=== PATIENT | female | born 1975 | race Caucasian/White ===

== ENCOUNTER 2022-10-14 05:46 | Day surgery (SDC) | payer OTHER ==
[2022-10-07 15:25] VITALS: BMI 24.2
[2022-10-14] MEDS ORDERED: BUPIVACAINE HCL/PF 0.5% (5MG/ML) 10 ML VIAL ONE (09:33)
[2022-10-14] MEDS ORDERED: PROPOFOL 20 ML ONE (12:18)
[2022-10-14] MEDS ORDERED: ROCURONIUM BROMIDE 50 MG/5 ML SYRINGE ONE (12:18)
[2022-10-14] MEDS ORDERED: MIDAZOLAM HCL 2 MG/2 ML SINGLE DOSE VIAL ONE (12:19)
[2022-10-14] MEDS ORDERED: ceFAZolin SODIUM 1 GM VIAL IVPB ONE (12:40)
[2022-10-14] MEDS ORDERED: BUPIVACAINE HCL/PF 0.5% (5 MG/ML) 30 ML VIAL IJ ONE (13:00)
[2022-10-14] MEDS ORDERED: NEOSTIGMINE METHYLSULFATE 0.5 MG/1 ML - 10 ML MDV ONE (13:38)
[2022-10-14] MEDS ORDERED: GLYCOPYRROLATE 0.2 MG/1 ML VIAL ONE ×2 (13:38)
[2022-10-14] MEDS ORDERED: ONDANSETRON 4 MG/2 ML VIAL IVPUSH PRN (13:55)
[2022-10-14] MEDS ORDERED: oxyCODONE HCL 5 MG TABLET PO PRN (13:55)
[2022-10-14] MEDS ORDERED: oxyCODONE HCL 5 MG TABLET PO ONE (16:04)
[2022-10-14 16:06] VITALS: RESP 16
[2022-10-14] MEDS ORDERED: oxyCODONE HCL 5 MG TABLET ONE (16:09)
[2022-10-14 18:56] VITALS: BP 121/73; PULSE 97; TEMP 97
== END 2022-10-14 18:30 | disposition home or self-care (01) ==
LOC: JASU-SURG 05:46
PROVIDERS: ATTEND Surgery
PROC: 0FT44ZZ Resection of Gallbladder, Percutaneous Endoscopic Approach (ICD-10-PCS; principal; 2022-10-14 10:45)
DX: K80.10 Calculus of gallbladder with chronic cholecystitis without obstruction (principal)
CPT/HCPCS: 81025; 88304-TC; 88342-TC; 94760